=== PATIENT | male | born 1985 ===

== ENCOUNTER 2017-02-18 13:30 | Emergency (ER) | payer SELFPAY ==
--- NOTE | 2017-02-18 14:49 | UC ---
Dental HPI - HPI Summary HPI Summary: complaint of broken tooth approx 2 weeks ago visiting from [facility]- has appt with his dental provider in 2 weeks pain in the bottom right jaw tooth pain that started 3 days ago- left check started to swell bad taste in his mouth denies fever and chills taking ibuprofen which stopped working - History of Current Complaint Chief Complaint: UCDentalProblem Stated Complaint: DENTAL PAIN Time Seen by Provider: 02/18/17 14:41 Hx Obtained From: Patient - Allergies/Home Medications Allergies/Adverse Reactions: Allergies Allergy/AdvReac Type Severity Reaction Status Date / Time No Known Allergies Allergy Verified 02/18/17 14:35 Home Medications: Home Medications Aspirin [Aspirin Adult Low Dose 81 MG] 81 mg PO DAILY 02/18/17 [History Confirmed 02/18/17] Lisinopril TAB* [Prinivil TAB 10 MG*] 10 mg PO DAILY 02/18/17 [History Confirmed 02/18/17] Pravastatin Sodium [Pravachol] 40 mg PO DAILY 02/18/17 [History Confirmed ] SitaGLIPtin (NF) [Januvia (NF)] 100 mg PO DAILY 02/18/17 [History Confirmed ] glipiZIDE TAB* [Glucotrol TAB*] 5 mg PO DAILY 02/18/17 [History Confirmed ] metFORMIN* [Glucophage 1000 MG TAB *] 1,000 mg PO BID 02/18/17 [History Confirmed 02/18/17] PMH/Surg Hx/FS Hx/Imm Hx Previously Healthy: Yes Endocrine History Of: Reports: Diabetes Denies: Thyroid Disease Cardiovascular History Of: Reports: Hypertension Denies: Cardiac Disorders Respiratory History Of: Denies: COPD, Asthma GI/ History Of: Denies: Ulcer - Surgical History Surgical History: Yes Surgery Procedure, Year, and Place: tanvi placement to left leg in 1998. - Family History Known Family History: Positive: Diabetes - parents Negative: Cardiac Disease, Hypertension - Social History Occupation: Employed Full-time Lives: With Family Alcohol Use: None Substance Use Type: None Smoking Status (MU): Never Smoked Tobacco Review of Systems Constitutional: Negative Skin: Negative Eyes: Negative ENT: Dental Pain Respiratory: Negative Cardiovascular: Negative Gastrointestinal: Negative Genitourinary: Negative Motor: Negative Neurovascular: Negative Musculoskeletal: Negative Neurological: Negative Psychological: Negative All Other Systems Reviewed And Are Negative: Yes Physical Exam Triage Information Reviewed: Yes Appearance: Pain Distress, Obese Vital Signs: Initial Vital Signs Temp 98.4 F 02/18/17 14:28 Pulse 83 02/18/17 14:28 Resp 18 02/18/17 14:28 BP 155/85 02/18/17 14:28 Pulse Ox 98 02/18/17 14:28 Vital Signs Reviewed: Yes Eyes: Positive: Conjunctiva Clear ENT: Positive: Pharynx normal, Nasal congestion, TMs normal Dental: Positive: Dental Fracture @ - 30, Abscess @ - 30 Neck: Positive: No Lymphadenopathy Respiratory: Positive: Lungs clear, Normal breath sounds, No respiratory distress, No accessory muscle use Cardiovascular: Positive: RRR, No Murmur, Pulses Normal Abdomen Description: Positive: Nontender, Soft Bowel Sounds: Positive: Present Musculoskeletal: Positive: No Edema Neurological: Positive: Alert Psychological Exam: Normal Skin Exam: Normal Dental Complaint Course/Dx - Differential Dx/Diagnosis Differential Diagnosis/Dx: Dental Abscess, Fractured Tooth Provider Diagnoses: dental abscess, fractured tooth, elevated blood pressure Discharge - Discharge Plan Condition: Stable Disposition: HOME Prescriptions: DOXYcycline CAP(*) [DOXYcycline 100MG CAP(*)] 100 mg PO BID #28 cap traMADol TAB* [Ultram*] 50 mg PO Q6HR PRN #12 tab MDD 4 PRN Reason: Pain (Dental) Patient Education Materials: Dental Abscess (ED) Referrals: [facility] [Outside] Additional Instructions: Please take antibiotic as directed Increase fluids and rest Take tramadol for fever or pain then switch back to acetaminophen or ibuprofen as needed keep your dental appointment for followup treatment Please review your discharge instructions. If your symptoms do not improve please call your primary care provider or return to urgent care. Your blood pressure is elevated. Please contact your primary care provider within 1 day -4 weeks for further evaluation
== END 2017-02-18 15:12 | disposition home or self-care (01) ==
LOC: UCEAST 13:30
DX: K04.7 Periapical abscess without sinus (principal); E11.9 Type 2 diabetes mellitus without complications; K03.81 Cracked tooth; I10 Essential (primary) hypertension; E66.9 Obesity, unspecified; Z79.82 Long term (current) use of aspirin; Z79.84 Long term (current) use of oral hypoglycemic drugs
CPT/HCPCS: 99202; G0463